=== PATIENT | male | born 1940 | race Caucasian/White ===

== ENCOUNTER → 2019-02-10 | Outpatient (CLI) | payer OTHER ==
[~2019-02-10] VITALS: Ht 175.3 cm; Wt 77.1 kg
[~2019-02-10] MED LIST: ACYCLOVIR IV; ASA5UEC PO; ASA81BEC PO; ATORVASTATIN CA40 MG PO; BYSTOLIC 5 MG5 M1 PO; EFFIENT10 MG PO; JUICE PLUS PO; LISINOPRIL5 MG PO; MULTI VITAMIN1 EACH PO; VALTREX1000 MG PO
--- NOTE | 2019-02-14 10:49 | PATH ---
[facility] [address] [place] [address] PATHOLOGY RPT PROCEDURE Name: MARYANN VICTORIA Rex Room #: REG MARGOTH Duong.#: [id number] Admission: 02/10/19 Date of : 44 Discharge: Report #: [id number] Path Case #: [id number] [facility] Accession Number: [id number] . 01 Material submitted: . PART A: cecum - CECUM POLYP PART B: colon - PROXIMAL ASCENDING COLON POLYP. Modifiers: proximal, ascending . 01 Clinical history: . Pre-op diagnosis: Family history of colon cancer Post-op diagnosis: Polyp . 02 Diagnosis: A. Polyp, cecum, endoscopic biopsy: - Tubular adenoma. - Negative for high-grade dysplasia. . B. Polyp, proximal ascending colon, endoscopic biopsy: - Tubular adenoma. - Negative for high-grade dysplasia. (IUV:star; 02/13/2019) QMS 02/13/2019 1204 Local . 02 Electronically signed: . Tonie Michael MD, Pathologist NPI- [id number] . 01 Gross description: . A. The specimen is received in formalin, labeled "Maryann Victoria, cecum polyp". Received are four segments of pale matos soft tissue ranging in size from 0.3 to 1.1 cm in maximum dimensions. The specimen is submitted entirely in cassette A1. . B. The specimen is received in formalin, labeled "Maryann Victoria, proximal ascending colon polyp". Received is a segment of pale matos soft tissue measuring 0.5 cm in maximum dimensions. The specimen is submitted entirely in cassette B1. (CAA; 02/10/2019) QAC/QAC 02/10/2019 1404 Local . 02 Pathologist provided ICD-10: D12.0, D12.2 . 02 CPT . 971641, 381310 Specimen Comment: A courtesy [place] [address] PATHOLOGY RPT PROCEDURE Name: MARYANN VICTORIA Room #: REG [facility]#: [id number] Admission: 02/10/19 Date of : 44 Discharge: Report #: [id number] Path Case #: [id number] Specimen Comment: [phone], . Specimen Comment: Report sent to / DR NORWOOD Performed at: [address], [place], [place] [id number] MD George Marcano MD Phone: [phone] Performed at: [address] [id number] MD Tonie Michael MD Phone: [phone]
--- NOTE | 2019-02-16 08:04 | P ---
[facility] [place] [address] PROCEDURE REPORT Name: MARYANN LIRA Room #: REG [facility]#: [id number] Admission: 02/10/19 Attend Phys: Nas Rush MD Discharge: Date of : 44 Report #: [id number] THIS REPORT FOR: //name// CC: Tre Rush BRIEF HISTORY: The patient is a 79-year-old male with a history of multiple colon adenomas. Three years ago, 4 adenomas were removed. He presents for high risk screening due to history of multiple adenomas. Also, a parent had colon cancer in her 80s. PREOPERATIVE DIAGNOSIS: High risk screening colonoscopy. POSTOPERATIVE DIAGNOSES: 1. Multiple colon polyps. 2. Mild sigmoid diverticulosis coli. MEDICATIONS: Deep sedation with propofol per anesthesia. SPECIMENS: 1. Cecal polyps x 2. 2. Proximal ascending colon polyp. ESTIMATED BLOOD LOSS: 3 mL. PROCEDURE: Colonoscopy to cecum and terminal ileum with snare polypectomy and biopsy. FINDINGS: Prior to propofol sedation, procedure of colonoscopy discussed with the patient as well as potential risks and its complications. He indicates he understands and desires to proceed. DESCRIPTION OF PROCEDURE: With the patient in left lateral decubitus position, digital examination was completed, which revealed no abnormalities. Subsequently, the Olympus video colonoscope was introduced in the rectum, advanced under direct vision to the cecum. Done with minimal difficulty. The cecum was identified by the ileocecal valve and the appendiceal orifice. I was able to visualize the distal segment of terminal ileum, which was inspected and noted to be unremarkable. At that point, the scope was slowly withdrawn and careful circumferential views obtained including retroflexing the scope in the ascending colon. Upon slow withdrawal of the scope, the prep was good. The mucosa was within normal limits, normal vascular pattern, normal light reflex. As we withdrew the scope, 2 polyps were seen in the cecum. One was a flat, slightly nodular polyp. It was about 8-10 mm in greatest dimension. It was removed by cold snare polypectomy. The other was actually 2 diminutive polyps side by side. This was removed with biopsy forceps. Scope was further [facility] [address] [place] [address] PROCEDURE REPORT Name: PANKAJMARYANN E [id number] Admission: 02/10/19 Attend Phys: Nas Rush MD Discharge: Date of : 44 Report #: [id number] withdrawn in the proximal ascending colon, another diminutive polyp was seen and removed with biopsy forceps. Scope was further withdrawn and no additional neoplastic lesions were seen. In the sigmoid, a couple of small diverticula were seen. There was no endoscopic evidence of diverticulitis. Scope was withdrawn in the rectum, no abnormalities were seen. Upon retroflexion, questionable small hemorrhoids were seen. Scope was withdrawn. The patient tolerated the procedure well. CONDITION OF THE PATIENT UPON DISCHARGE: Following procedure, the patient was drowsy, arousable and conversant and will be discharged home when fully ambulatory. INSTRUCTIONS TO THE PATIENT AND FAMILY AT THE TIME OF DISCHARGE: We will follow up on the pathology. If all three of the polyps are adenomas, he should return in 3 years, otherwise, he should return in 5 years and also suggest high fiber diet. Last colonoscopy was 3 years ago. Withdrawal time from the cecum was 16 minutes 43 seconds. <ELECTRONICALLY SIGNED> By: Nas Rush MD 02/16/19 0804 [id number] 1823 Nas Rush MD /nt
== END | disposition home or self-care (01) ==
LOC: GI 08:08
DX: Z12.11 Encounter for screening for malignant neoplasm of colon (principal); Z86.010 Personal history of colon polyps; Z80.0 Family history of malignant neoplasm of digestive organs; D12.0 Benign neoplasm of cecum; D12.2 Benign neoplasm of ascending colon; K57.30 Diverticulosis of large intestine without perforation or abscess without bleeding; E78.5 Hyperlipidemia, unspecified; I25.2 Old myocardial infarction; Z87.442 Personal history of urinary calculi; Z90.49 Acquired absence of other specified parts of digestive tract; Z98.52 Vasectomy status; Z98.890 Other specified postprocedural states; Z79.899 Other long term (current) drug therapy; Z95.818 Presence of other cardiac implants and grafts
CPT/HCPCS: 62110; 62900

== ENCOUNTER → 2020-02-21 | Outpatient (CLI) | payer OTHER | LOC: SJCVC 10:50 | PROVIDERS: ATTEND Internal Medicine Cardiovascular Disease | DX: I25.10 Atherosclerotic heart disease of native coronary artery without angina pectoris (principal); I10 Essential (primary) hypertension; I25.2 Old myocardial infarction; E78.00 Pure hypercholesterolemia, unspecified; Z79.899 Other long term (current) drug therapy ==

== ENCOUNTER → 2020-09-25 | Outpatient (CLI) | payer OTHER | LOC: SJCVCIMAG 07:55 | PROVIDERS: ATTEND Internal Medicine Cardiovascular Disease | DX: I08.0 Rheumatic disorders of both mitral and aortic valves (principal); I25.10 Atherosclerotic heart disease of native coronary artery without angina pectoris; E78.5 Hyperlipidemia, unspecified; Z98.61 Coronary angioplasty status ==